=== PATIENT | female | born 1985 | race Caucasian/White ===

== ENCOUNTER 2017-02-10 21:13 | Emergency (ER) | payer OTHER ==
[2017-02-10] MEDS ORDERED: ONDANSETRON 4 MG ODT TAB ONE (21:41)
--- NOTE | 2017-02-11 08:31 | CT ---
HEAD W/O CON COMPARISON: None HISTORY: Glass cups fell on the patient's head 3 hours prior. Headache, nausea, confusion, and photophobia. TECHNIQUE: Using a [employer] Aqu[employer] [address] scanner, images were obtained through the head. An automated dose reduction technique was used to minimize patient radiation dose. DOSE INFORMATION: CTDIvol (mGy): 51.70 DLP(mGycm): 887.30 FINDINGS: Mass: None Intracranial Hemorrhage: None Acute Infarction: None Cerebral hemispheres: Normal Basal ganglia: Normal Thalami: Normal Brainstem: Normal Cerebellum: Normal Ventricles: Normal Basilar cisterns: Normal Corpus callosum: Normal Pituitary fossa: Normal Middle ears and mastoid air cells: Normal Orbits and sinuses: Normal Skull and scalp: Normal Dural sinuses and vessels: Normal IMPRESSION: Normal study. Preliminary report by [employer] radiologist Guerda López M.D. 02/10/2017 at 22:17
== END 2017-02-10 22:36 | disposition home or self-care (01) ==
LOC: ED 21:13
DX: S06.0X0A Concussion without loss of consciousness, initial encounter (principal); F17.210 Nicotine dependence, cigarettes, uncomplicated; W20.8XXA Other cause of strike by thrown, projected or falling object, initial encounter; Y93.E9 Activity, other interior property and clothing maintenance; Y92.009 Unspecified place in unspecified non-institutional (private) residence as the place of occurrence of the external cause
CPT/HCPCS: 70450; 99283 ×2; A9270